=== PATIENT | male | born 1990 | race Hispanic/Latino ===

== ENCOUNTER 2023-08-27 23:52 | Emergency (ER) | payer SELFPAY ==
--- NOTE | ~2023-08-27 | XR_ITS ---
Portable chest x-ray Comparison: Chest pain Clinical History: 09/17/2018 Findings: Lungs are clear, without focal consolidation or pleural effusion. Cardiomediastinal silho uette is stable. Bones and soft tissues are unremarkable. Impression: Normal chest. Reviewed, dictated and finalized at location . SHABLE FRUIT INSPECTOR Impression: Normal chest.
--- NOTE | 2023-08-28 | ECG_ITS ---
Measurements Intervals [place] Rate: 91 P: 56 [place]: 145 QRS: 21 QRSD: 125 T: 35 QT: 340 QTc: 420 Interpretive Statements SINUS RHYTHM INCOMPLETE RIGHT BUNDLE BRANCH BLOCK BASELINE ARTIFACT- I, II, III, AVL, AVF BORDERLINE ECG NO PREVIOUS ECG AVAILABLE FOR COMPARISON Electronically Signed On 08-28-2023 6:41:57 SHIPPING PROCESSOR by Brennon Andres D.O.
[2023-08-28 00:06] VITALS: BP 144/82; PULSE 97; RESP 14; TEMP 36.7; O2SAT 99
--- NOTE | 2023-08-28 02:50 | ECG_ITS ---
Measurements Intervals [place] Rate: 78 P: 32 [place]: 143 QRS: 14 QRSD: 124 T: 33 QT: 357 QTc: 407 Interpretive Statements SINUS RHYTHM INCOMPLETE RIGHT BUNDLE BRANCH BLOCK BORDERLINE ECG COMPARED TO ECG 08/28/2023 03:11:30 NO SIGNIFICANT CHANGES Electronically Signed On 08-28-2023 6:48:09 SILK BLOCKER by Brennon Andres D.O.
[2023-08-28 03:04] VITALS: PULSE 78
[2023-08-28 03:05] VITALS: O2SAT 100
[2023-08-28 03:06] VITALS: BP 131/90; PULSE 77; RESP 16; TEMP 36.6; O2SAT 99
[2023-08-28 03:10] LABS: Basophils Percent Auto 0.3 % (0.2-1.2); Eosinophils Absolute Auto 0.1 K/mm3 (0-0.3); Eosinophils Percent Auto 1.1 % (0-4.4); Hematocrit 45.2 % (42.0-52.0); Hemoglobin 15.6 g/dL (14.0-18.0); Immature Granulocyte Absolute 0.02 K/mm3 (0.00-0.031); Immature Granulocyte Percent A 0.3 % (0-0.5); Immature Platelet Fraction Pct 7.1 % (0.9-11.2); Lymphocytes Absolute Auto 1.27 K/mm3 (0.9-3.2); Lymphocytes Percent Auto 18.2 % (18.3-44.2); Mean Corpuscular HGB Conc 34.5 g/dl (32-36); Mean Corpuscular Hemoglobin 29.6 pg (26-34); Mean Corpuscular Volume 85.8 fl (80-100); Mean Platelet Volume 11.1 fl (7.4-10.4); Monocytes Absolute Auto 0.5 K/mm3 (0.1-0.6); Neutrophils Absolute Auto 5.1 K/mm3 (1.3-6.7); Neutrophils Percent Auto 73.1 % (45.5-73.1); Platelet Count Result 79 k/mm3 (150-375); Red Blood Count 5.27 M/mm3 (4.6-6.20); Red Cell Distribution Width 12.3 % (11.5-14.5)
--- NOTE | 2023-08-28 03:16 | ED.GENADULT ---
HPI - General Adult General Chief complaint: Chest Pain Stated complaint: CP Time Seen by Provider: 08/28/23 03:05 History of Present Illness HPI narrative: patient is a 32-year-old gentleman presents emergency department with chief complaint of chest pain. Patient reports pain has been ongoing for the last 4 days reports the pain is on the left side of his chest nonradiating reports that it is a burning-like sensation. The patient reports that he has no prior history of heart disease reports that the pain has been pretty well constant throughout that time Related Data Allergies Allergy/AdvReac Type Severity Reaction Status Date / Time No Known Allergies Allergy Unverified 09/17/18 15:25 Review of Systems Review of Systems: A 10 system review of systems was completed on the patient and is negative except for what is stated in the HPI. Nursing and ancillary documentation was reviewed. Exam Narrative: GENERAL: Well-appearing, well-nourished, and in no acute distress. HEAD: Normocephalic, atraumatic. EYES: PERRLA and EOMI. ENT: Nares clear, no rhinorrhea or epistaxis. Mucous membranes moist. NECK: Supple. CHEST: Clear to auscultation. No respiratory distress. HEART: Regular rate and rhythm. No murmur heard. Normal peripheral pulses. ABDOMEN: Soft, nontender, nondistended, normal active bowel sounds. EXTREMITIES: Normal range of motion. No edema. SKIN: Warm, dry, no rash. NEURO: No focal deficits. Alert and oriented x3. PSYCH: Normal mood and affect. Course Vital Signs Vital signs: Vital Signs Temperature 36.7 C 08/28/23 00:06 Pulse Rate 97 08/28/23 00:06 Respiratory Rate 14 08/28/23 00:06 Blood Pressure 144/82 H 08/28/23 00:06 Pulse Oximetry 99 08/28/23 00:06 Oxygen Delivery Room Air 08/28/23 00:06 Temperature 36.6 C 08/28/23 03:06 Pulse Rate 85 08/28/23 04:17 Respiratory Rate 16 08/28/23 04:17 Blood Pressure 114/76 08/28/23 04:17 Pulse Oximetry 99 08/28/23 04:17 Oxygen Delivery Room Air 08/28/23 03:05 Medical Decision Making [facility] Narrative Medical decision making narrative: differential diagnosis includes noncardiac chest pain, chest pain, ACS, angina, chest x-ray showed no focal findings. EKG showed no ST elevation laboratory studies were obtained showed 0 hour and 3 hour troponin the patient has a heart score less than 3 patient discharged home for outpatient follow-up Vital Signs Vital Signs: Vital Signs Temperature 36.7 C 08/28/23 00:06 Pulse Rate 97 08/28/23 00:06 Respiratory Rate 14 08/28/23 00:06 Blood Pressure 144/82 H 08/28/23 00:06 Pulse Oximetry 99 08/28/23 00:06 Oxygen Delivery Room Air 08/28/23 00:06 Temperature 36.6 C 08/28/23 03:06 Pulse Rate 85 08/28/23 04:17 Respiratory Rate 16 08/28/23 04:17 Blood Pressure 114/76 08/28/23 04:17 Pulse Oximetry 99 08/28/23 04:17 Oxygen Delivery Room Air 08/28/23 03:05 Lab Data 08/28/23 03:02 08/28/23 03:02 Labs: Lab Results 08/28/23 08/28/23 Range/Units 03:02 05:36 WBC 7.0 (4.5-10.0) K/mm3 RBC 5.27 (4.6-6.20) M/mm3 Hgb 15.6 (14.0-18.0) g/dL Hct 45.2 (42.0-52.0) % MCV 85.8 (80-100) fl MCH 29.6 (26-34) pg MCHC 34.5 (32-36) g/dl RDW 12.3 (11.5-14.5) % Plt Count 79 L (150-375) k/mm3 MPV 11.1 H (7.4-10.4) fl Immature Gran % (Auto) 0.3 (0-0.5) % Neut % (Auto) 73.1 (45.5-73.1) % Lymph % (Auto) 18.2 L (18.3-44.2) % [place] % (Auto) 7.0 (2.6-8.5) % Eos % (Auto) 1.1 (0-4.4) % Baso % (Auto) 0.3 (0.2-1.2) % Lymph # (Auto) 1.27 (0.9-3.2) K/mm3 [place] # (Auto) 0.5 (0.1-0.6) K/mm3 Eos # (Auto) 0.1 (0-0.3) K/mm3 Baso # (Auto) 0.0 (0.0-0.1) K/mm3 Abs Immat Gran (auto) 0.02 (0.00-0.031) K/mm3 Absolute Neuts (auto) 5.1 (1.3-6.7) K/mm3 Absolute Nucleated RBC 0.0 (0.0-0.012) K/mm3 Nucleated RBC % 0.0 (0.0-0.2)
[2023-08-28 03:19] LABS: Partial Thromboplastin Time 35.3 SECONDS (22.3-36.8); Prothrombin Time 14.1 Seconds (11.1-14.7)
[2023-08-28 03:21] LABS: Platelet Estimate Decreased (Adequate); Schistocytes None Seen (NORMAL)
[2023-08-28] MEDS: BELLADONNA ALK/PHENOB ELIX 10 ML, MAG HYDROX/ALUMINUM HYD/SIMETH 30 ML, LIDOCAINE HCL 2... PO (03:27)
[2023-08-28 03:34] LABS: Troponin I < 0.012 ng/mL (0.000-0.034)
[2023-08-28 03:35] LABS: Alanine Aminotransferase 87 U/L (6-50); Albumin Level 4.8 g/dL (3.5-5.1); Alkaline Phosphatase 87 U/L (38-126); Anion Gap 12 mmol/L (8-16); Aspartate Amino Transferase 50 U/L (17-59); Blood Urea Nitrogen 11 mg/dL (9-20); Calcium 9.2 mg/dL (8.4-10.2); Carbon Dioxide 23 mmol/L (22-30); Chloride 103 mmol/L (98-107); Estimated CRCL calculation 145 ml/min; Estimated Glomerular Filt Rate > 60; Glucose 104 mg/dL (65-110); Lipase 124 U/L (23-300); Potassium 3.9 mmol/L (3.4-5.0); Sodium 138 mmol/L (137-145)
[2023-08-28 03:39] LABS: NT Pro B Type Natriuretic Pept < 20 pg/mL (19.9-100)
[2023-08-28 04:17] VITALS: BP 114/76; PULSE 85; RESP 16; O2SAT 99
--- NOTE | 2023-08-28 05:33 | ECG_ITS ---
Measurements Intervals [place] Rate: 92 P: 49 RI: 128 QRS: -18 QRSD: 119 T: 34 QT: 352 QTc: 437 Interpretive Statements SINUS RHYTHM INCOMPLETE RIGHT BUNDLE BRANCH BLOCK BORDERLINE T WAVE ABNORMALITY- ANTERIOR LEADS BORDERLINE ECG NO PREVIOUS ECG AVAILABLE FOR COMPARISON Electronically Signed On 08-28-2023 14:29:35 WASHER AND CAPPER MACHINE OPERATOR by Brennon Andres D.O.
[2023-08-28 06:02] LABS: Troponin I < 0.012 ng/mL (0.000-0.034)
[2023-08-28 06:39] VITALS: BP 114/76; PULSE 91; RESP 17; O2SAT 95
== END 2023-08-28 07:02 | disposition home or self-care (01) ==
PROVIDERS: Emergency Provider Emergency Medicine
DX: R07.89 Other chest pain (principal); I45.10 Unspecified right bundle-branch block; R94.31 Abnormal electrocardiogram [ECG] [EKG]
CPT/HCPCS: 36415; 71045; 80053; 83690; 83880; 84484; 85025; 85055; 85610; 85730; 93005; 99284; A9270